=== PATIENT | female | born 1970 | race Caucasian/White ===

== ENCOUNTER → 2017-03-23 | Day surgery (SDC) | payer OTHER ==
[~2017-03-23] MED LIST: ACETAMINOPHEN/HYDROcodone 325 MG/5 MG TAB ONE; BUPIVACAINE HCL PF 0.25% 30 ML VIAL ONE; KETOROLAC TROMETHAMINE 30 MG/ML (IVP) VIAL IV PUSH ONE; MIDAZOLAM HCL 2 MG/2 ML VIAL ONE; ONDANSETRON HCL 4 MG/2 ML VIAL IV PUSH ONE; PROPOFOL 100 MG/10 ML INJ IV ONE; SODIUM CHLORIDE 0.9% 100 ML BAG IV ONE; SODIUM CHLORIDE 0.9% SOLN 1000 ML BTL ONE; ceFAZolin INJ 1,000 MG VIAL ONE
--- NOTE | 2017-03-25 09:14 | MP ---
cc: CAROLINE PENG DPM DATE OF SURGERY: 03/25/2017. PREOPERATIVE DIAGNOSIS: 1. Right hallux abductovalgus, metatarsalgia, tailor's bunion fifth metatarsal. 2. Soft tissue mass lateral foot. POSTOPERATIVE DIAGNOSIS: 1. Right hallux abductovalgus metatarsalgia tailor's bunion fifth metatarsal. 2. Soft tissue mass lateral foot. OPERATIVE PROCEDURE PERFORMED: Right modified Lapidus bunionectomy with partial fusion of syndesmosis second metatarsal, second cuneiform, second metatarsal osteotomy, fifth metatarsal osteotomy and excision deep mass right foot. SURGEON: Caroline Peng DPM ESTIMATED BLOOD LOSS Less than 30 mL. INJECTABLES: Approximately 45 mL of 0.25% Marcaine plain. TOURNIQUET TIME: A pneumatic ankle tourniquet was inflated for approximately 5 minutes, deemed ineffective, and then an Esmarch tourniquet was wrapped around the patient's distal ankle for approximately 120 minutes. COMPLICATIONS: None. IMPLANTABLES: 3.5 cannulated screws x2. x1 3.0 screw. x3 2.0 cannulated screws. ANESTHESIA: General. DISPOSITION: Discharge home when stable per same-day surgery criteria. JUSTIFICATION FOR THE PROCEDURE: This is a pleasant 46-year-old female with worsening foot pain on the outside as well as the inside of the foot. She also has transferred metatarsalgia secondary to a short first metatarsal and hypermobile first ray. There is also a painful mass that had been developing on the lateral aspect of the foot. We devised a plan to move forward with correction of the bony deformities as well as excision of the mass. No guarantees were given or implied regarding the outcome. The patient understood this will take minimum of 3 months to heal and possibly as long as to one year. Burning, tingling, numbness, stiffness, need for more screw removal at a later date was all educated to the patient as a possibility. DESCRIPTION OF THE PROCEDURE IN DETAIL: Under mild sedation, the patient was brought into the operating room and placed on the operative the supine position. Following the induction of general anesthesia, local anesthesia was attained about the right forefoot utilizing standard block fashion. The right foot was then scrubbed, prepped and draped in the usual aseptic fashion. The foot was elevated, exsanguinated and the previously placed mid-calf tourniquet was inflated to 250 mmHg. An incision was made over the dorsal aspect of the first MPJ. The tourniquet seemed to have a malfunction. We then decompressed the ankle tourniquet and wrapped in a Esmarch around the ankle. This was superior hemostasis. Further sharp and blunt dissection was carried down to the level of the first MPJ and an L-shaped capsulotomy was performed introduced into the first MPJ. The intra-articular contents was identified. There was minimal arthritic findings with a prominent dorsomedial eminence was noted which was transected. Next a McGlamry elevator was introduced deep in the first MPJ freeing up all plantar and lateral sesamoid contractures. Sharp and blunt dissection was carried down to the base of the first metatarsal, medical cuneiform joint and reciprocal planing took place removing the base of the first metatarsal and the head of the medial cuneiform being very careful not over shorten; however, decrease the first and second metatarsal angle. Once being sure all the reticular contents was removed from the first metatarsal medial cuneiform joint, arthrodesis was then performed, correcting for hallux valgus. A screw was then placed from dorsal distal to plantar proximal traversing the arthrodesis site as well as a distal dorsal to proximal plantar. There was noted to be slight instability upon stressing the first metatarsal medial cuneiform construct at the level of the syndesmosis. At this time a screw was then placed from the base of the first metatarsal to the base of the second metatarsal fusing the syndesmotic membrane. This was noted to be excellent stability. The wound was flushed with copious amounts of normal saline. Redundant capsule was transected and repaired utilizing Vicryl. Deep periosteal closure took place utilizing Vicryl. Skin was closed utilizing nylon. An incision was made over the dorsal aspect of the second metatarsal. Sharp and blunt dissection was carried down to the extensor tendon just medial to the extensor tendon. An incision was made, linear capsular incision, exposing the head of the second metatarsal. There was noted to be slightly longer and slightly plantar flexed. An offset osteotomy was performed dorsal and distal to the plantar proximal and then fixated after the capital fragment was transposed proximally 2 mm utilizing one 2.0 screw. The prominent dorsal shelf was transected to allow ease of range of motion of the second MPJ. The wound was flushed with copious amounts of normal saline. The capsule layer was closed utilizing Vicryl. Skin was closed utilizing nylon. An incision was then made over the dorsal aspect the fifth MPJ. Sharp and blunt dissection was carried down to the joint capsule. An L-shaped capsulotomy was performed revealing a prominent dorsal lateral eminence. This was then transected. An offset V osteotomy was performed of the fifth metatarsal and the capital fragment was transposed medially 3 mm then fixated utilizing x2 2.0 screws utilizing proper A/O technique. There was noted to be compression across the osteotomy site. The prominent shelf proximally was transected to smooth bony contour. The wound was flushed with copious amounts of normal saline. Capsule was then repaired utilizing Vicryl. Skin was closed utilizing nylon. A curvilinear incision was made over the dorsal aspect of the fifth metatarsal base. Sharp and blunt dissection was carried down and venous structures that were encountered were Bovied and ligated as deemed necessary. A ganglion cyst type mass was identified measuring approximately 8 mm x 6 mm with 4 mm of height that appeared to be a herniation of the sheath of the peroneus brevis tendon. This was excised. Bovie and ligation at the level of the tendon sheath level took place closing off the herniation and this specimen was passed off for pathological analysis. The wound was flushed with copious amounts of normal saline. Skin was closed utilizing nylon. Upon relieving the Esmarch tourniquet, there was a prompt hyperemic response to all digits without any delayed capillary fill time. A bulky bandage was placed. The patient was transferred from the operating room to the post-anesthesia care unit with all vital signs stable. She is heel transfer weight-bear only. She will follow up within three to five days. JEAN PIERRE Mann/SHASHANK /3:58 PM /8:51 AM
== END | disposition home or self-care (01) ==
LOC: ESDC 11:37
PROVIDERS: ATTEND Podiatrist Foot & Ankle Surgery
DX: M20.11 Hallux valgus (acquired), right foot (principal); M21.621 Bunionette of right foot; R22.41 Localized swelling, mass and lump, right lower limb
CPT/HCPCS: 00400; 01480; 28043; 28110; 28297; 73620; 76000; 88304; C1713; J0690; J1885; J2250; J2405; J3010; 88305